=== PATIENT | female | born 1995 | race Caucasian/White ===

== ENCOUNTER 2021-04-14 09:55 | Inpatient (IN) | payer OTHER ==
[2021-04-14] MEDS ORDERED: MENTHOL/PHENOL 1 EACH UD MM PRN (10:46)
[2021-04-14] MEDS ORDERED: METHOCARBAMOL 500 MG TABLET PO PRN (10:46)
[2021-04-14] MEDS ORDERED: MAG HYDROX/AL HYDROX/SIMETH 30 ML UNIT-DOSE CUP PO PRN (10:46)
[2021-04-14] MEDS ORDERED: LOPERAMIDE HCL 2 MG CAPSULE PO PRN (10:46)
[2021-04-14] MEDS ORDERED: MAGNESIUM CITRATE 300 ML BOTTLE PO PRN (10:46)
[2021-04-14] MEDS ORDERED: NICOTINE 10 MG CARTRIDGE (INHALER) IH PRN (10:46)
[2021-04-14] MEDS ORDERED: MAGNESIUM HYDROX 2400MG/30ML ORAL SUSPENSION 30 ML CUP PO PRN (10:46)
[2021-04-14] MEDS ORDERED: ONDANSETRON *ODT* 4 MG TABLET SL PRN (10:46)
[2021-04-14] MEDS ORDERED: BISMUTH SUBSALICYLATE 262 MG/15 ML BTL PO PRN (10:46)
[2021-04-14] MEDS ORDERED: IBUPROFEN 400 MG TABLET (FP) PO PRN (10:46)
[2021-04-14] MEDS ORDERED: methaDONE HCL 10 MG TABLET (FOR DETOX USE ONLY) PO ONE (10:46)
[2021-04-14] MEDS ORDERED: ACETAMINOPHEN 325 MG TABLET (FP) PO PRN ×2 (10:46)
[2021-04-14 11:08] VITALS: BMI 23.8
[2021-04-14] MEDS: diazePAM 5 MG TABLET PO PRN ×3 (12:23→22:51)
[2021-04-14] MEDS: cloNIDine HCL 0.1 MG TABLET PO PRN ×2 (12:23→22:08)
[2021-04-14] MEDS: hydrOXYzine PAMOATE 25 MG CAPSULE (FP) PO SCH ×3 (14:34→22:08)
[2021-04-14 16:42] LABS: HEMATOCRIT 38.6 % (32.4-45.2); HEMOGLOBIN 12.8 GM/dL (10.7-15.3); MCH 28.7 pg (25.7-33.7); MCHC 33.1 g/dl (32.0-36.0); MEAN CELL VOLUME 86.9 fl (80-96); MEAN PLT VOLUME 8.4 fl (7.5-11.1); PLATELET COUNT 396 10^3/uL (134-434); RBC 4.44 M/mm3 (3.60-5.2); RDW 13.8 % (11.6-15.6); WHITE BLOOD COUNT 10.5 K/mm3 (4.0-10.0)
[2021-04-14 16:48] LABS: CALCIUM 8.7 mg/dL (8.5-10.1)
[2021-04-14 16:49] LABS: ALBUMIN 3.3 g/dl (3.4-5.0); BLOOD UREA NITROGEN 10.9 mg/dL (7-18)
[2021-04-14 16:52] LABS: CREATININE 0.7 mg/dL (0.55-1.3)
[2021-04-14 16:54] LABS: BILIRUBIN,TOTAL 0.1 mg/dL (0.2-1); TOT PROT 6.8 g/dl (6.4-8.2)
[2021-04-14] MEDS: THIAMINE HCL 100 MG TABLET (FP) PO SCH (22:08)
[2021-04-14] MEDS: MELATONIN 5 MG TABLETS PO SCH (22:08)
[2021-04-15] MEDS: hydrOXYzine PAMOATE 25 MG CAPSULE (FP) PO SCH ×5 (07:45→22:15)
[2021-04-15] MEDS ORDERED: methaDONE HCL 10 MG TABLET (FOR DETOX USE ONLY) ONE (09:01)
[2021-04-15] MEDS: diazePAM 5 MG TABLET PO PRN ×3 (10:15→23:10)
[2021-04-15] MEDS: PRENATAL VITAMINS W/ FOLIC ACID TABLET (FP) PO SCH (10:15)
[2021-04-15] MEDS ORDERED: QUEtiapine FUMARATE 50 MG TABLET PO PRN (10:17)
[2021-04-15] MEDS: SUVOREXANT 10 MG TABLET PO PRN (22:13)
[2021-04-15] MEDS: THIAMINE HCL 100 MG TABLET (FP) PO SCH (22:14)
[2021-04-15] MEDS: cloNIDine HCL 0.1 MG TABLET PO PRN (22:17)
[2021-04-16] MEDS: diazePAM 5 MG TABLET PO PRN (06:21)
[2021-04-16] MEDS: hydrOXYzine PAMOATE 25 MG CAPSULE (FP) PO SCH ×5 (06:22→22:17)
[2021-04-16] MEDS ORDERED: methaDONE HCL 10 MG TABLET (FOR DETOX USE ONLY) PO ONE (10:00)
[2021-04-16 10:08] LABS: SARS-CoV-2 NAA Not Detected (Not Detected)
[2021-04-16] MEDS: PRENATAL VITAMINS W/ FOLIC ACID TABLET (FP) PO SCH (10:12)
[2021-04-16] MEDS: SUVOREXANT 10 MG TABLET PO PRN (22:17)
[2021-04-16] MEDS: THIAMINE HCL 100 MG TABLET (FP) PO SCH (22:17)
[2021-04-16] MEDS: CYCLOBENZAPRINE HCL 5 MG TABLET PO PRN (22:17)
[2021-04-17] MEDS: hydrOXYzine PAMOATE 25 MG CAPSULE (FP) PO SCH ×5 (06:53→22:28)
[2021-04-17] MEDS ORDERED: methaDONE HCL 10 MG TABLET (FOR DETOX USE ONLY) ONE (09:12)
[2021-04-17] MEDS: PRENATAL VITAMINS W/ FOLIC ACID TABLET (FP) PO SCH (10:12)
[2021-04-17] MEDS: CYCLOBENZAPRINE HCL 5 MG TABLET PO PRN ×2 (10:14→22:27)
[2021-04-17] MEDS: THIAMINE HCL 100 MG TABLET (FP) PO SCH (22:27)
[2021-04-17] MEDS: SUVOREXANT 10 MG TABLET PO PRN (22:27)
[2021-04-17] MEDS: MELATONIN 5 MG TABLETS PO SCH (22:27)
[2021-04-18] MEDS: hydrOXYzine PAMOATE 25 MG CAPSULE (FP) PO SCH ×5 (07:15→21:28)
[2021-04-18] MEDS ORDERED: methaDONE HCL 10 MG TABLET (FOR DETOX USE ONLY) PO ONE (10:00)
[2021-04-18] MEDS: CYCLOBENZAPRINE HCL 5 MG TABLET PO PRN ×2 (10:19→21:29)
[2021-04-18] MEDS: PRENATAL VITAMINS W/ FOLIC ACID TABLET (FP) PO SCH (10:19)
[2021-04-18] MEDS: THIAMINE HCL 100 MG TABLET (FP) PO SCH (21:27)
[2021-04-18] MEDS: SUVOREXANT 10 MG TABLET PO PRN (21:30)
[2021-04-19] MEDS: hydrOXYzine PAMOATE 25 MG CAPSULE (FP) PO SCH ×4 (06:33→18:25)
[2021-04-19] MEDS: PRENATAL VITAMINS W/ FOLIC ACID TABLET (FP) PO SCH (10:10)
[2021-04-19 17:48] VITALS: BP 105/63; PULSE 97; TEMP 98.4
== END 2021-04-19 18:30 | disposition other institution (70) | DRG 773 ==
LOC: YASAS 09:55 → Y3N 11:21
PROVIDERS: ADMIT Allergy & Immunology; ATTEND Allergy & Immunology
PROC: HZ2ZZZZ Detoxification Services for Substance Abuse Treatment (ICD-10-PCS; principal; 2021-04-14)
DX: F11.23 Opioid dependence with withdrawal (principal); F12.20 Cannabis dependence, uncomplicated; F17.210 Nicotine dependence, cigarettes, uncomplicated; F19.282 Other psychoactive substance dependence with psychoactive substance-induced sleep disorder; Z91.51 Personal history of suicidal behavior
CPT/HCPCS: 36415; 80053; 85027; 86780; C9803; J0735; Q0162; U0003; U0005

== ENCOUNTER 2021-04-19 18:37 | Inpatient (IN) | payer OTHER ==
[2021-04-19] MEDS ORDERED: MAG HYDROX/AL HYDROX/SIMETH 30 ML UNIT-DOSE CUP PO PRN (20:28)
[2021-04-19] MEDS ORDERED: MAGNESIUM CITRATE 300 ML BOTTLE PO PRN (20:28)
[2021-04-19] MEDS ORDERED: NICOTINE 10 MG CARTRIDGE (INHALER) IH PRN (20:28)
[2021-04-19] MEDS ORDERED: LOPERAMIDE HCL 2 MG CAPSULE PO PRN (20:28)
[2021-04-19] MEDS ORDERED: P-EPHED 60MG/TRIPROLIDI 2.5MG TABLET PO PRN (20:28)
[2021-04-19] MEDS ORDERED: MENTHOL/PHENOL 1 EACH UD MM PRN (20:28)
[2021-04-19] MEDS ORDERED: guaiFENesin 200 MG/10 ML 10 ML UNIT-DOSE CUPS PO PRN (20:28)
[2021-04-19] MEDS ORDERED: MAGNESIUM HYDROX 2400MG/30ML ORAL SUSPENSION 30 ML CUP PO PRN (20:28)
[2021-04-19] MEDS: THIAMINE HCL 100 MG TABLET (FP) PO SCH (21:44)
[2021-04-19] MEDS: MELATONIN 5 MG TABLETS PO SCH (21:45)
[2021-04-20] MEDS: NICOTINE 14 MG/24 HOURS TOPICAL PATCH TD SCH (11:10)
[2021-04-20] MEDS: PRENATAL VITAMINS W/ FOLIC ACID TABLET (FP) PO SCH (11:10)
[2021-04-20] MEDS: IBUPROFEN 400 MG TABLET (FP) PO PRN (15:37)
[2021-04-20] MEDS: THIAMINE HCL 100 MG TABLET (FP) PO SCH (21:55)
[2021-04-20] MEDS: SUVOREXANT 10 MG TABLET PO PRN (21:58)
[2021-04-20] MEDS: MELATONIN 5 MG TABLETS PO SCH (21:59)
[2021-04-21] MEDS: IBUPROFEN 400 MG TABLET (FP) PO PRN (01:15)
[2021-04-21] MEDS: PRENATAL VITAMINS W/ FOLIC ACID TABLET (FP) PO SCH (10:53)
[2021-04-21] MEDS: NICOTINE 14 MG/24 HOURS TOPICAL PATCH TD SCH (10:53)
[2021-04-21] MEDS: METHOCARBAMOL 500 MG TABLET PO PRN ×2 (13:52→21:50)
[2021-04-21] MEDS: ACETAMINOPHEN 325 MG TABLET (FP) PO PRN (13:52)
[2021-04-21 14:08] LABS: SARS-CoV-2 NAA Not Detected (Not Detected)
[2021-04-21] MEDS: hydrOXYzine PAMOATE 50 MG CAPSULE (FP) PO PRN (21:50)
[2021-04-21] MEDS: THIAMINE HCL 100 MG TABLET (FP) PO SCH (21:50)
[2021-04-21] MEDS: SUVOREXANT 10 MG TABLET PO PRN (21:51)
[2021-04-22] MEDS: PRENATAL VITAMINS W/ FOLIC ACID TABLET (FP) PO SCH (11:00)
[2021-04-22] MEDS: NICOTINE 14 MG/24 HOURS TOPICAL PATCH TD SCH (11:00)
[2021-04-22] MEDS: THIAMINE HCL 100 MG TABLET (FP) PO SCH (21:50)
[2021-04-22] MEDS: METHOCARBAMOL 500 MG TABLET PO PRN (21:51)
[2021-04-22] MEDS: hydrOXYzine PAMOATE 50 MG CAPSULE (FP) PO PRN (21:51)
[2021-04-22] MEDS: SUVOREXANT 10 MG TABLET PO PRN (21:51)
[2021-04-22 23:11] VITALS: PULSE 100
[2021-04-23 07:24] VITALS: BP 114/77; TEMP 97.9
[2021-04-23] MEDS: NICOTINE 14 MG/24 HOURS TOPICAL PATCH TD SCH (10:18)
[2021-04-23] MEDS: PRENATAL VITAMINS W/ FOLIC ACID TABLET (FP) PO SCH (10:18)
[2021-04-23] MEDS: ACETAMINOPHEN 325 MG TABLET (FP) PO PRN (15:19)
[2021-04-23] MEDS: hydrOXYzine PAMOATE 50 MG CAPSULE (FP) PO PRN ×2 (15:19→21:35)
[2021-04-23] MEDS: CYCLOBENZAPRINE HCL 10 MG TABLET (FP) PO PRN ×2 (15:22→21:35)
[2021-04-23] MEDS: THIAMINE HCL 100 MG TABLET (FP) PO SCH (21:35)
[2021-04-23] MEDS: SUVOREXANT 10 MG TABLET PO PRN (21:36)
[2021-04-24] MEDS: NICOTINE 14 MG/24 HOURS TOPICAL PATCH TD SCH (11:06)
[2021-04-24] MEDS: PRENATAL VITAMINS W/ FOLIC ACID TABLET (FP) PO SCH (11:06)
[2021-04-24] MEDS: CYCLOBENZAPRINE HCL 10 MG TABLET (FP) PO PRN ×2 (19:19→22:54)
[2021-04-24] MEDS: hydrOXYzine PAMOATE 50 MG CAPSULE (FP) PO PRN ×2 (19:19→22:51)
[2021-04-24] MEDS: THIAMINE HCL 100 MG TABLET (FP) PO SCH (21:43)
[2021-04-25] MEDS: NICOTINE 14 MG/24 HOURS TOPICAL PATCH TD SCH (10:44)
[2021-04-25] MEDS: PRENATAL VITAMINS W/ FOLIC ACID TABLET (FP) PO SCH (10:45)
== END 2021-04-25 10:50 | disposition left against medical advice (07) | DRG 770 ==
LOC: YASAS 18:37 → Y5N 18:38
PROVIDERS: ADMIT Allergy & Immunology; ATTEND Allergy & Immunology
PROC: HZ42ZZZ Group Counseling for Substance Abuse Treatment, Cognitive-Behavioral (ICD-10-PCS; principal; 2021-04-19)
DX: F11.20 Opioid dependence, uncomplicated (principal); F12.20 Cannabis dependence, uncomplicated; F17.210 Nicotine dependence, cigarettes, uncomplicated; F19.282 Other psychoactive substance dependence with psychoactive substance-induced sleep disorder; F19.280 Other psychoactive substance dependence with psychoactive substance-induced anxiety disorder; F43.10 Post-traumatic stress disorder, unspecified; Z91.410 Personal history of adult physical and sexual abuse; Z59.00 Homelessness unspecified
CPT/HCPCS: C9803; U0003; U0005